=== PATIENT | female | born 1960 | race Caucasian/White ===

== ENCOUNTER 2016-10-27 19:25 | Emergency (ER) | payer MEDICAID ==
[2016-10-27 20:32] VITALS: BP 203/108
[2016-10-27] MEDS ORDERED: Sodium Chloride 0.9% 500 ML IV ONE (22:00)
[2016-10-27] MEDS ORDERED: Sodium Chloride 0.9% 10 ML Syringe FLUSH PRN (22:01)
[2016-10-27] MEDS ORDERED: Potassium Chloride 20 MEQ Tab.ER PO ONE (22:01)
--- NOTE | 2016-10-27 22:20 | EDM.PDOCBH ---
ED HPI GENERAL MEDICAL PROBLEM - General Chief Complaint: Behavioral/Psych Stated Complaint: BITTEN BY BUGS Time Seen by Provider: 10/27/16 21:00 Source of Information: Reports: Patient, Other (Friend) History Limitations: Reports: Other (Hx of dementia) - History of Present Illness INITIAL COMMENTS - FREE TEXT/NARRATIVE: Maddy is a 56 year old female with a hx of Dementia who presents to the ED today with her friend c/o "bug bites". Patient reports she has fleas in her nose and coming out of her fingertips/tips of toes and her back. Friend reports that this has been an ongoing issue for the last few weeks, apartment has been treated for possible fleas. Friend reports she herself has not seen anything. Patient lives alone but spends time at her friend's house. Friend is concerned about patient not eating well and her progressive dementia. Friend reports that county has been notified of patient and "nothing has been done". Patient denies any suicidal ideation or intent to harm herself or others. Patient does not currently take any medication. Patient denies any recent physical illness or other complaints besides her "flea bites". Onset: Gradual - Related Data Allergies Allergy/AdvReac Type Severity Reaction Status Date / Time No Known Allergies Allergy Verified 10/27/16 20:27 Home Meds: Home Meds Acetaminophen/HYDROcodone [[place] 325-5 MG] 1 tab PO Q6H PRN 05/06/16 [History] Citalopram Hydrobromide [Celexa] 40 mg PO DAILY 05/06/16 [History] Clobetasol [Clobetasol Propionate 0.05%] 1 applic TOP DAILY 05/06/16 [History] Donepezil HCl [Aricept] 10 mg PO BEDTIME 05/06/16 [History] Estradiol [Estrace Vaginal] 1 applic VAG BEDTIME PRN 05/06/16 [History] Promethazine [Phenergan] 25 mg PO Q4H PRN 05/06/16 [History] Zolpidem Tartrate [Ambien Cr] 12.5 mg PO BEDTIME PRN 05/06/16 [History] Social & Family History - Tobacco Use Smoking Status *Q: Unknown Ever Smoked Years of Tobacco use: 35 Used Tobacco, but Quit: No Second Hand Smoke Exposure: Yes - Alcohol Use Days Per Week of Alcohol Use: 0 - Recreational Drug Use Recreational Drug Use: No ED ROS GENERAL - Review of Systems Review Of Systems: ROS reveals no pertinent complaints other than HPI. ED EXAM, BEHAVIORAL HEALTH - Physical Exam Exam: See Below Exam Limited By: Other (Dementia) General Appearance: Alert, WD/WN, Anxious Nose: Normal Inspection, Normal Mucosa, No Blood, Other (No bugs, no foreign body, negative exam) Throat/Mouth: Normal Inspection, Normal Oropharynx, No Airway Compromise Head: Atraumatic Neck: Normal Inspection, Supple, Non-Tender Respiratory/Chest: No Respiratory Distress, Lungs Clear, Normal Breath Sounds Cardiovascular: Normal Peripheral Pulses, Regular Rate, Rhythm, No Murmur GI/Abdominal: Normal Bowel Sounds, Soft, Non-Tender Back Exam: Normal Inspection, Full Range of Motion Extremities: Normal Inspection Neurological: Alert, Oriented x 3 Psychiatric: Other (tactile hallucinations) Skin Exam: Warm, Dry, Intact, Other (small 3 mm scab to right upper back) COURSE, BEHAVIORAL HEALTH COMP - Course Vital Signs: Last Vital Signs Temp 36.1 C 10/27/16 20:31 Pulse 71 10/27/16 20:31 Resp 16 10/27/16 20:31 BP 203/108 H 10/27/16 20:31 Pulse Ox 98 10/27/16 20:31 Maddy is a 56 year old female with a hx of dementia who presents to the ED today with her friend for evaluation of bug bites. Patient has a completely benign exam and no evidence of any bug infestation. She has no bite mcmahon but is insistent that she has been bitten and that the "fleas" are coming out of her fingers and toes. Patient denies any thoughts of self harm or harm of others and at this time is not appropriate for a hold. She is otherwise alert, oriented to place and year but not time which is not new for her. Blood work was evaluated to rule out any metabolic cause for patient's symptoms. Her CBC returns with a normal white count, HGB is mildly low at 11.7 , CMP returns with a sodium of 130, a potassium of 3.5 and a chloride of 94, remaining CMP is unremarkable. I went into patient's room to discuss her test results with her and her friend. Patient at that time became upset that I was not seeing her bug bites. Patient became upset and refused any electrolyte replacement that was ordered including 500 ml of normal saline and oral potassium replacement. Patient decided to leave the department. Patient's friend is upset and would like more done at this time. Patient really is from a medical stand point stable to leave, from a dementia/psyche standpoint, she is not "hold-able". I understand the friend's frustration but did explain to her that from an ER standpoint, I cannot force patient to stay. I did leave a message with [facility] to follow up with patient and her current living situation including evaluation and determination of appropriate living environment. Orders, Labs, Meds: Active Orders 24 hr Category Date Time Status Peripheral IV Care [RC] . DIRECTED Care 10/27/16 22:01 Active Sodium Chloride 0.9% [Normal Saline] 500 ml Med 10/27/16 22:00 Active IV .BOLUS Sodium Chloride 0.9% [Saline Flush] Med 10/27/16 22:01 Active 10 ml FLUSH ASDIRECTED PRN Peripheral IV Insertion Adult [OM.PC] Routine Oth 10/27/16 22:01 Ordered Medication Orders Sodium Chloride (Normal Saline) 500 mls @ 999 mls/hr IV .BOLUS ONE Stop: 10/27/16 22:30 Sodium Chloride (Saline Flush) 10 ml FLUSH ASDIRECTED PRN PRN Reason: Keep Vein Open Laboratory Tests 10/27/16 10/27/16 Range/Units 21:06 21:06 WBC 10.3 (4.5-11.0) K/uL RBC 3.65 (3.30-5.50) M/uL Hgb 11.7 L (12.0-15.0) g/dL Hct 34.3 L (36.0-48.0) % MCV 94 (80-98) fL MCH 32 H (27-31) pg MCHC 34 (32-36) % Plt Count 391 (150-400) K/uL Neut % (Auto) 64 (36-66) % Lymph % (Auto) 24 (24-44) % [place] % (Auto) 8 H (2-6) % Eos % (Auto) 3 (2-4) % Baso % (Auto) 1 (0-1) % Sodium 130 L (140-148) mmol/L Potassium 3.5 L (3.6-5.2) mmol/L Chloride 94 L (100-108) mmol/L Carbon Dioxide 28 (21-32) mmol/L Anion Gap 11.5 (5.0-14.0) mmol/L BUN 14 (7-18) mg/dL Creatinine 0.9 (0.6-1.0) mg/dL Est Cr Clr Drug Dosing 58.46 mL/min Estimated GFR (MDRD) > 60 (>60) Glucose 102 (74-106) mg/dL Calcium 8.8 (8.5-10.1) mg/dL Total Bilirubin 0.2 (0.2-1.0) mg/dL AST 30 (15-37) U/L ALT 42 (12-78) U/L Alkaline Phosphatase 62 (46-116) U/L Total Protein 7.6 (6.4-8.2) g/dL Albumin 3.8 (3.4-5.0) g/dL Globulin 3.8 H (2.3-3.5) g/dL Albumin/Globulin Ratio 1.0 L (1.2-2.2) Medications Generic Name Dose Route Start Last Admin Trade Name Freq PRN Reason Stop Dose Admin Sodium Chloride 500 mls @ 999 mls/hr 10/27/16 22:00 Normal Saline IV 10/27/16 22:30 .BOLUS ONE Sodium Chloride 10 ml 10/27/16 22:01 Saline Flush FLUSH ASDIRECTED PRN Keep Vein Open Discontinued Medications Generic Name Dose Route Start Last Admin Trade Name Freq PRN Reason Stop Dose Admin Potassium Chloride 40 meq 10/27/16 22:01 Klor-Con M20 PO 10/27/16 22:02 ONETIME ONE Departure - Departure Time of Disposition: 22:20 Disposition: Against Medical Advice 07 Condition: Fair Clinical Impression: Hallucinations Dementia Qualifiers: Dementia type: unspecified type Dementia behavioral disturbance: without behavioral disturbance Qualified Code(s): F03.90 - Unspecified dementia without behavioral disturbance - Discharge Information Referrals: Rodrick Del Angel MD [Primary Care Provider] - Forms: ED Department Discharge, Refusal of Care AMA - My Orders Last 24 Hours: My Active Orders 10/27/16 22:00 Sodium Chloride 0.9% [Normal Saline] 500 ml IV .BOLUS 10/27/16 22:01 Peripheral IV Care [RC] . DIRECTED Sodium Chloride 0.9% [Saline Flush] 10 ml FLUSH ASDIRECTED PRN Peripheral IV Insertion Adult [OM.PC] Routine - Assessment/Plan Last 24 Hours: My Active Orders 10/27/16 22:00 Sodium Chloride 0.9% [Normal Saline] 500 ml IV .BOLUS 10/27/16 22:01 Peripheral IV Care [RC] . DIRECTED Sodium Chloride 0.9% [Saline Flush] 10 ml FLUSH ASDIRECTED PRN Peripheral IV Insertion Adult [OM.PC] Routine
== END 2016-10-27 22:15 | disposition left against medical advice (07) ==
LOC: JP.ED 19:25
DX: F03.90 Unspecified dementia, unspecified severity, without behavioral disturbance, psychotic disturbance, mood disturbance, and anxiety (principal); Z79.899 Other long term (current) drug therapy
CPT/HCPCS: 36415; 80053; 85025; 99285